=== PATIENT | male | born 1955 | race Caucasian/White ===

== ENCOUNTER 2016-06-26 20:33 | Emergency (ER) | payer OTHER ==
[~2016-06-26] VITALS: Ht 182.9 cm; Wt 113.5 kg
[~2016-06-26 20:33] MED LIST: BACT800T5 PO; BUPR-197 PO; DOXY100T PO; ENAL2.5 PO; HYDR-3133 PO; IBUP800T23 PO; OMPR20CCR PO; QUET100 PO; ROSU40 PO; THIA100T PO; VALP250 PO
[2016-06-26 21:05] VITALS: BP 122/84; PULSE 88; RESP 20; TEMP 98.5; O2SAT 95
--- NOTE | 2016-06-26 21:35 | PD ---
HPI Chief Complaint: Laceration/Skin Injury Time Seen by Provider: 21:32 Travel History International Travel<30 days: No Contact w/Intl Traveler<30days: No Traveled to known affect area: No History of Present Illness HPI 60-year-old male presents the emergency Department with lacerations to the bottom of his left foot. Patient states he dropped some razor blades on the floor. The patient then stepped on them causing lacerations of the left foot. Bleeding is being controlled with dressing the patient applied himself. He denies numbness, tingling, or weakness in the distal left foot. He is unsure of his last tetanus shot. PFSH Past Medical History Asthma: No Bipolar Disorder: Yes Anxiety: Yes Depression: Yes Heart Rhythm Problems: No Cancer: No Cardiovascular Problems: Yes High Cholesterol: Yes Chemotherapy: No Chest Pain: No Congestive Heart Failure: No COPD: No Diabetes: No Diminished Hearing: No Endocrine: No Gastrointestinal Disorders: No GERD: Yes Genitourinary: No Headaches: No Hypertension: Yes Implanted Vascular Access Dvce: No Insomnia: Yes Musculoskeletal: No Neurologic: No Psychiatric: Yes (Treatment for Bipolar Disorder beginning in his 20s. ) Reproductive: No Respiratory: No Immunizations Current: Yes Radiation Therapy: No Seizures: No Sleep Apnea: No Thyroid Disease: No Past Surgical History Genitourinary Surgery: Yes (Removal of polyps during colonoscopy 6+ years ago.) Tonsillectomy: Yes Other Surgery: Yes (POLYPS REMOVED WITH COLONSCOPY) Social History Alcohol Use: No (QUIT 1995) Tobacco Use: Yes (1 PPD) Substance Use: No (PAST) Allergies-Medications (Allergen,Severity, Reaction): Coded Allergies: Penicillin (Verified Adverse Reaction, Intermediate, Diarrhea, 06/26/16) Reported Meds & Prescriptions Reported Meds & Active Scripts Active Enalapril Maleate 2.5 Mg Tab 2.5 Mg PO DAILY 30 Days Vitamin B1 (Thiamine HCl) 100 Mg Tab 100 Mg PO DAILY 30 Days Quetiapine Fumarate 100 Mg Tab 100 Mg PO HS 30 Days Depakene 250 mg (Valproic Acid) 250 Mg Cap 500 Mg PO Q12HR 30 Days Atarax (Hydroxyzine HCl) 25 Mg Tab 25 Mg PO TID PRN Ibuprofen 800 Mg Tab 800 Mg PO Q6 PRN Bactrim DS (Sulfamethoxazole-Trimethoprim DS) 1 Tab Tab 1 Tab PO BID 7 Days Vibramycin 100 mg (Doxycycline Hyclate) 100 Mg Cap 100 Mg PO BID Reported Crestor (Rosuvastatin Calcium) 40 Mg Tab 40 Mg PO HS Prilosec 20 Mg Cap (Omeprazole) 20 Mg Capcr 20 Mg PO DAILY Wellbutrin (Bupropion HCl) 100 Mg Tab 300 Mg PO DAILY Review of Systems Except as stated in HPI: all other systems reviewed are Neg General / Constitutional: No: Fever Eyes: No: Visual changes HENT: No: Headaches Cardiovascular: No: Chest Pain or Discomfort Respiratory: No: Shortness of Breath Gastrointestinal: No: Abdominal Pain Genitourinary: No: Dysuria Musculoskeletal: No: Pain Skin: No Rash Neurologic: No: Weakness Psychiatric: No: Depression Endocrine: No: Polydipsia Hematologic/Lymphatic: No: Easy Bruising Physical Exam Narrative GENERAL: Patient is in no acute distress. SKIN: Warm and dry. Normal color. Normal turgor. Patient has multiple superficial lacerations to the base of the sole of the left foot. HEAD: Atraumatic. Normocephalic. EYES: Pupils equal and round. No scleral icterus. No injection or drainage. ENT: No nasal bleeding or discharge. Mucous membranes pink and moist. NECK: Trachea midline. No JVD. CARDIOVASCULAR: Regular rate and rhythm. RESPIRATORY: No accessory muscle use. Clear to auscultation. Breath sounds equal bilaterally. MUSCULOSKELETAL: Extremities without clubbing, cyanosis, or edema. No obvious deformities. NEUROLOGICAL: Awake and alert. No obvious cranial nerve deficits. Motor grossly within normal limits. Five out of 5 muscle strength in the arms and legs. Normal speech. PSYCHIATRIC: Appropriate mood and affect; insight and judgment normal. Data Data Last Documented VS Vital Signs Date Time Temp Pulse Resp B/P Pulse Ox O2 Delivery O2 Flow Rate FiO2 06/26/16 21:05 98.5 88 20 122/84 95 Orders Tetanus/Diphtheria Tox Adult (Tetanus/Di (06/26/16 22:00) Crutches (06/26/16 21:51) Levofloxacin (Levaquin) (06/26/16 22:00) MDM Medical Decision Making Medical Screen Exam Complete: Yes Emergency Medical Condition: Yes Differential Diagnosis Accidental laceration. Laceration to the left foot. Puncture wound left foot. Narrative Course Patient is medically stable at time of exam. Left foot is soaked in Betadine saline solution for 20 minutes. Wounds are explored and found to be superficial and without foreign body or full -thickness. Foot was dressed with bulky bandage. Radiographic imaging is not felt necessary, or suture closure. Patient is given crutches to limit his weightbearing on the left foot for the next several days. Patient is given a tetanus 0.5 mg IM. Dressing is to remain in place for the next 2-3 days as discussed. Patient is given Levaquin 500 mg by mouth now and to be continued for the next 5 days. Patient should follow-up with any symptoms of cellulitis develop, as needed. Diagnosis Primary Impression: Laceration of left foot excluding toes without complication Qualified Code: S91.312A - Laceration of left foot excluding toes without complication, initial encounter Patient Instructions: General Instructions, Laceration Without Closure (ED), Tetanus (DC) Additional Instructions: Radiographic imaging is not felt necessary, or suture closure. Patient is given crutches to limit his weightbearing on the left foot for the next several days. Patient is given a tetanus 0.5 mg IM. Dressing is to remain in place for the next 2-3 days as discussed. Patient is given Levaquin 500 mg by mouth now and to be continued for the next 5 days. Patient should follow-up with any symptoms of cellulitis develop, as needed. Med/Other Pt SpecificInfo: Prescription(s) given, Wound Care Disposition: 01 DISCHARGE HOME Condition: Stable Jasen Townsend Jun 26, 2016 21:35
[2016-06-26] MEDS ORDERED: LEVA500T PO (21:56)
[2016-06-26] MEDS ORDERED: TETANUS/DIPHTHERIA TOXOID ADULT 0.5 ML VIAL IM ONE (22:00)
[2016-06-26] MEDS ORDERED: LEVOFLOXACIN 500 MG TAB PO ONE (22:00)
== END 2016-06-26 22:11 | disposition home or self-care (01) ==
LOC: PHEFT 20:33
DX: S91.312A Laceration without foreign body, left foot, initial encounter (principal); F41.8 Other specified anxiety disorders; E78.00 Pure hypercholesterolemia, unspecified; I10 Essential (primary) hypertension; F31.9 Bipolar disorder, unspecified; Z23 Encounter for immunization; W45.8XXA Other foreign body or object entering through skin, initial encounter; Y93.9 Activity, unspecified; Y92.9 Unspecified place or not applicable; Y99.9 Unspecified external cause status
CPT/HCPCS: 90471; 90714; E0113

== ENCOUNTER 2016-12-13 15:39 | Emergency (ER) | payer OTHER, MEDICAID ==
[~2016-12-13 15:39] MED LIST changes: -BACT800T5 PO; -BUPR-197 PO; -DOXY100T PO; -ENAL2.5 PO; -HYDR-3133 PO; -IBUP800T23 PO; +LEVA500T PO; -OMPR20CCR PO; -QUET100 PO; -ROSU40 PO; -THIA100T PO; -VALP250 PO
[2016-12-13 15:42] VITALS: BP 165/99; PULSE 88; RESP 15; TEMP 98.4; O2SAT 99
--- NOTE | 2016-12-13 15:54 | PD ---
Physical Exam Time Seen by Provider: 15:52 Narrative 60yo M c/o "bipolar episode." Panic and anxiety. Wants to be evaluated by psych to get back on meds and get stable to function in society. Denies SI or HI. Has no medical complaints at this time. Patient seen in triage. VS reviewed. Awaiting bed placement. Data Data Last Documented VS Vital Signs Date Time Temp Pulse Resp B/P (MAP) Pulse Ox O2 Delivery O2 Flow Rate FiO2 12/13/16 15:42 98.4 88 15 165/99 (121) 99 Orders Orders Complete Blood Count With Diff (12/13/16 15:54) Comprehensive Metabolic Panel (12/13/16 15:54) Psych Screen (12/13/16 15:54) MDM Supervised Visit with MATIAS: Celeste Morse Dec 13, 2016 15:54
[2016-12-13 17:47] LABS: AUTOMATED NEUTROPHIL # 3.3 TH/MM3 (1.8-7.7); BASOPHIL # 0.1 TH/MM3 (0-0.2); BASOPHIL % 0.7 % (0.0-2.0); EOSINOPHIL # 0.1 TH/MM3 (0-0.4); EOSINOPHIL % 1.7 % (0.0-4.0); HEMATOCRIT 44.2 % (39.0-51.0); LYMPH % 42.2 % (9.0-44.0); LYMPHOCYTE # 3.2 TH/MM3 (1.0-4.8); MEAN CELL VOLUME 87.4 FL (80.0-100.0); MEAN CORPUSCULAR HGB CONC 34.3 % (32.0-36.0); MONO % 11.4 % (0.0-8.0); PLATELET COUNT 185 TH/MM3 (150-450); RED BLOOD COUNT 5.05 MIL/MM3 (4.50-5.90); RED CELL DISTRIBUTION WIDTH 14.1 % (11.6-17.2); WHITE BLOOD COUNT 7.6 TH/MM3 (4.0-11.0)
[2016-12-13 17:51] LABS: ALT (GPT) 30 U/L (12-78)
[2016-12-13 17:53] LABS: ALKALINE PHOSPHATASE 83 U/L (45-117); TOTAL BILIRUBIN ADULT 0.4 MG/DL (0.2-1.0)
[2016-12-13 17:55] LABS: ANION GAP 8 MEQ/L (5-15); AST (GOT) 31 U/L (15-37); BICARBONATE 27.5 MEQ/L (21.0-32.0); BLOOD UREA NITROGEN 12 MG/DL (7-18); CHLORIDE 101 MEQ/L (98-107); GLOMERULAR FILTRATION RATE 81 ML/MIN (>89); POTASSIUM 3.4 MEQ/L (3.5-5.1); SODIUM (NA) 136 MEQ/L (136-145)
[2016-12-13 17:56] LABS: ACETAMINOPHEN LESS THAN 2.0 MCG/ML (10.0-30.0); ALCOHOL LESS THAN 3 MG/DL (0-5)
--- NOTE | 2016-12-13 17:58 | PD ---
HPI Chief Complaint: Psychiatric Symptoms Time Seen by Provider: 17:52 Travel History International Travel<30 days: No Contact w/Intl Traveler<30days: No Traveled to known affect area: No History of Present Illness HPI 60-year-old male with PMH of bipolar presents to the ED for voluntary psychiatric evaluation. Patient states that he started working recently after a long hiatus and has been becoming increasingly anxious and agitated. He states that this culminated with an episode today where his heart was pounding and he was crying, very anxious. 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 On presentation he denies suicidal ideation. He endorses increased anxiety. He does not currently take any psychiatric medications. He denies somatic complaints. He denies alcohol, smoking or illicit substance use. PFSH Past Medical History Asthma: No Bipolar Disorder: Yes Anxiety: Yes Depression: Yes Heart Rhythm Problems: No Cancer: No Cardiovascular Problems: Yes High Cholesterol: Yes Chemotherapy: No Chest Pain: No Congestive Heart Failure: No COPD: No Diabetes: No Diminished Hearing: No Endocrine: No Gastrointestinal Disorders: No GERD: Yes Genitourinary: No Headaches: No Hypertension: Yes Implanted Vascular Access Dvce: No Insomnia: Yes Musculoskeletal: No Neurologic: No Psychiatric: Yes (Treatment for Bipolar Disorder beginning in his 20s. ) Reproductive: No Respiratory: No Immunizations Current: Yes Radiation Therapy: No Seizures: No Sleep Apnea: No Thyroid Disease: No Past Surgical History Genitourinary Surgery: Yes (Removal of polyps during colonoscopy 6+ years ago.) Tonsillectomy: Yes Other Surgery: Yes (POLYPS REMOVED WITH COLONSCOPY) Social History Alcohol Use: No (QUIT 1995) Tobacco Use: No Substance Use: No (PAST) Allergies-Medications (Allergen,Severity, Reaction): Coded Allergies: penicillin G (Unverified Adverse Reaction, Intermediate, Diarrhea, 12/04/16 ) Reported Meds & Prescriptions Reported Meds & Active Scripts Active No Active Prescriptions or Reported Medications Review of Systems Except as stated in HPI: all other systems reviewed are Neg Physical Exam Narrative GENERAL: Well-nourished, well-developed white male in no acute distress. PSYCHIATRIC: No delusional thought processes. No hallucinations. Intense eye contact. SKIN: Focused skin assessment warm/dry. HEAD: Normocephalic. EYES: No scleral icterus. No injection or drainage. NECK: Supple, trachea midline. No JVD or lymphadenopathy. CARDIOVASCULAR: Regular rate and rhythm without murmurs, gallops, or rubs. RESPIRATORY: Breath sounds clear and equal bilaterally. No accessory muscle use. GASTROINTESTINAL: Abdomen soft, protuberant, non-tender, nondistended. Active bowel sounds. MUSCULOSKELETAL: No cyanosis, or edema. BACK: Nontender without obvious deformity. No CVA tenderness. Data Data Last Documented VS Vital Signs Date Time Temp Pulse Resp B/P (MAP) Pulse Ox O2 Delivery O2 Flow Rate FiO2 12/13/16 18:21 89 18 153/88 (109) 97 Room Air 12/13/16 15:42 98.4 Orders Orders Complete Blood Count With Diff (12/13/16 15:54) Comprehensive Metabolic Panel (12/13/16 15:54) Psych Screen (12/13/16 15:54) Drug Screen, Random Urine (12/13/16 15:54) Alcohol (Ethanol) (12/13/16 15:54) Salicylates (Aspirin) (12/13/16 15:54) Tylenol (Acetaminophen) (12/13/16 15:54) Labs Laboratory Tests Test 12/13/16 17:00 12/13/16 17:16 White Blood Count 7.6 TH/MM3 Red Blood Count 5.05 MIL/MM3 Hemoglobin 15.2 GM/DL Hematocrit 44.2 % Mean Corpuscular Volume 87.4 FL Mean Corpuscular Hemoglobin 30.0 PG Mean Corpuscular Hemoglobin Concent 34.3 % Red Cell Distribution Width 14.1 % Platelet Count 185 TH/MM3 Mean Platelet Volume 9.0 FL Neutrophils (%) (Auto) 44.0 % Lymphocytes (%) (Auto) 42.2 % Monocytes (%) (Auto) 11.4 % Eosinophils (%) (Auto) 1.7 % Basophils (%) (Auto) 0.7 % Neutrophils # (Auto) 3.3 TH/MM3 Lymphocytes # (Auto) 3.2 TH/MM3 Monocytes # (Auto) 0.9 TH/MM3 Eosinophils # (Auto) 0.1 TH/MM3 Basophils # (Auto) 0.1 TH/MM3 CBC Comment AUTO DIFF Differential Comment AUTO DIFF CONFIRMED Blood Urea Nitrogen 12 MG/DL Creatinine 0.95 MG/DL Random Glucose 90 MG/DL Total Protein 7.6 GM/DL Albumin 3.6 GM/DL Calcium Level 8.5 MG/DL Alkaline Phosphatase 83 U/L Aspartate Amino Transf (AST/SGOT) 31 U/L Alanine Aminotransferase (ALT/SGPT) 30 U/L Total Bilirubin 0.4 MG/DL Sodium Level 136 MEQ/L Potassium Level 3.4 MEQ/L Chloride Level 101 MEQ/L Carbon Dioxide Level 27.5 MEQ/L Anion Gap 8 MEQ/L Estimat Glomerular Filtration Rate 81 ML/MIN Salicylates Level LESS THAN 1.7 MG/DL Acetaminophen Level LESS THAN 2.0 MCG/ML Ethyl Alcohol Level LESS THAN 3 MG/DL Urine Opiates Screen NEG Urine Barbiturates Screen NEG Urine Amphetamines Screen NEG Urine Benzodiazepines Screen NEG Urine Cocaine Screen NEG Urine Cannabinoids Screen NEG MDM Medical Decision Making Medical Screen Exam Complete: Yes Emergency Medical Condition: Yes Differential Diagnosis Adjustment disorder versus anxiety versus bipolar versus depression versus dementia versus electrolyte disorder versus malingering versus mood disorder versus ODD versus psychosis versus PTSD versus schizophrenia versus schizoaffective disorder versus substance-induced mood disorder versus other Narrative Course 60-year-old male with PMH of bipolar presents to the ED for voluntary psychiatric evaluation. Patient states that he started working recently after a long hiatus and has been becoming increasingly anxious and agitated. He states that this culminated with an episode today where his heart was pounding and he was crying, very anxious. 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 On presentation he denies suicidal ideation. He endorses increased anxiety. He does not currently take any psychiatric medications. He denies somatic complaints. He denies alcohol, smoking or illicit substance use. Vitals reviewed. Physical exam is unremarkable. No concerning abnormalities of the CBC, CMP, UA. Tox screen negative. The patient is medically cleared for psychiatric evaluation. Please see psychiatric note for disposition. Diagnosis Primary Impression: Medical clearance for psychiatric admission Scripts No Active Prescriptions or Reported Meds Jamia Bello Dec 13, 2016 17:58
[2016-12-13 18:21] VITALS: BP 153/88; PULSE 89; RESP 18; O2SAT 97
[2016-12-13 18:23] LABS: HEMO FLAGS AUTO DIFF
[2016-12-13 18:26] LABS: SCAN/DIFF AUTO DIFF CONFIRMED
[2016-12-13 19:20] VITALS: BP 150/85; PULSE 87; RESP 17; O2SAT 97
[2016-12-14 00:08] VITALS: BP 158/90; PULSE 85; RESP 16; TEMP 97.8; O2SAT 97
[2016-12-14 03:55] VITALS: BP 169/111; PULSE 97; RESP 16; O2SAT 97
[2016-12-14 06:37] VITALS: BP 154/88; PULSE 79; RESP 18; O2SAT 96
[2016-12-14 12:15] VITALS: BP 149/88; PULSE 81; RESP 18; TEMP 98.6; O2SAT 92
--- NOTE | 2016-12-14 15:06 | PD ---
History of Present Illness Chief Complaint: Psychiatric Symptoms Time Seen by Provider: 14:45 Travel History International Travel<30 Days: No Contact w/Intl Traveler<30days: No Known affected area: No Legal Status Legal Status: Voluntary History of Present Illness: History of Present Illness HPI 60-year-old male with PMH of bipolar presents to the ED for voluntary psychiatric evaluation. ED documentation reviewed and included in this report ; " Patient states that he started working recently after a long hiatus and has been becoming increasingly anxious and agitated. He states that this culminated with an episode today where his heart was pounding and he was crying , very anxious. 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 On presentation he denies suicidal ideation. He endorses increased anxiety. He does not currently take any psychiatric medications. " EMR reviewed. Has been seen by [facility] psychiatry dept. Seen. He is alert, calm, engaging. Mood is slightly elated. He feels he is " beginning to feel hyper' and wants to start his medications again. He is requesting Airport. He is also reporting that he is beginning to drink " some wine". He has not followed up with outpatient care . He is sleeping fair. There is no psychisi and no natan. No suicidal or homicidal ideation, intent or plan. PFSH Past Medical History Asthma: No Bipolar Disorder: Yes Anxiety: Yes Depression: Yes Heart Rhythm Problems: No Cancer: No Cardiovascular Problems: Yes High Cholesterol: Yes Chemotherapy: No Chest Pain: No Congestive Heart Failure: No COPD: No Diabetes: No Diminished Hearing: No Endocrine: No Gastrointestinal Disorders: No GERD: Yes Genitourinary: No Headaches: No Hypertension: Yes Implanted Vascular Access Dvce: No Insomnia: Yes Musculoskeletal: No Neurologic: No Psychiatric: Yes (Treatment for Bipolar Disorder beginning in his 20s. ) Reproductive: No Respiratory: No Immunizations Current: Yes Radiation Therapy: No Seizures: No Sleep Apnea: No Thyroid Disease: No Past Surgical History Genitourinary Surgery: Yes (Removal of polyps during colonoscopy 6+ years ago.) Tonsillectomy: Yes Other Surgery: Yes (POLYPS REMOVED WITH COLONSCOPY) Psychiatric History Psychiatric History Hx Psychiatric Treatment: Pt states he has an extensive history of inpatient psychiatric hospitalizations beginning in his 20s in [place]. He also reports that he has hospitalizations in [place]. He denies any current outpatient psychiatric services. 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 Hx Alcohol Use: No (QUIT 1995) Hx Tobacco Use: No Hx Substance Use: No (PAST) Substance Use Type: Alcohol, Marijuana, Nicotine/Cigarettes, Cocaine Other Substances Used: ATTENDS AA MEETINGS, PAST ILLICIT DRUG USE Hx of Substance Use Treatment: No Family Psychiatric History Negative Allergies-Medications (Allergen,Severity, Reaction): Coded Allergies: penicillin G (Unverified Adverse Reaction, Intermediate, Diarrhea, 12/04/16 ) Reported Meds & Prescriptions Reported Meds & Active Scripts Active No Active Prescriptions or Reported Medications Review of Systems Except as stated in HPI: all other systems reviewed are Neg Exam Alert: Yes [place]: Person (ox4) Mood: Anxious Affect: Appropriate Speech: Clear, Logical Eye Contact: Normal Memory Intact: Comment (no abnormality) Hallucinations: Other (negative) Delusions: No Suicidal: Ideation (deneis any) Homicidal: Ideation (deneis any) Insight/Judgement Fair [facility] Medical Decision Making Medical Record Reviewed: Yes Assessment/Plan HPI 60-year-old male with PMH of bipolar presents to the ED for voluntary psychiatric evaluation. Patient states that he started working recently after a long hiatus and has been becoming increasingly anxious and agitated. Patient monitored over an extended time. He is not manic or hypomanic. Anxious at times. Not psychotic and not suicidal. He wants to be able to get back on medication as well as in regular psychiatric follow up. H e knows he cannot drink alcohol. He wants prescription so that he can return to work on Saturday. Will RX Seroquel 100 mg po at [facility] which he has had in the past. Will not initiate Airport without having a regular outpatient provider. Follow up with outpatient provider. Cleared from psychiatry for discharge Orders Orders Complete Blood Count With Diff (12/13/16 15:54) Comprehensive Metabolic Panel (12/13/16 15:54) Psych Screen (12/13/16 15:54) Drug Screen, Random Urine (12/13/16 15:54) Alcohol (Ethanol) (8/24/17 15:54) Salicylates (Aspirin) (12/13/16 15:54) Tylenol (Acetaminophen) (12/13/16 15:54) Diet Regular Basic (12/14/16 Breakfast) Diet Regular Basic (12/14/16 Lunch) Results Vital Signs Date Time Temp Pulse Resp B/P (MAP) Pulse Ox O2 Delivery O2 Flow Rate FiO2 12/14/16 12:15 98.6 81 18 149/88 (108) 92 12/14/16 06:37 79 18 154/88 (110) 96 12/14/16 03:55 97 16 169/111 (130) 97 Room Air 12/14/16 00:08 97.8 85 16 158/90 (112) 97 12/13/16 19:20 87 17 150/85 (106) 97 Room Air 12/13/16 18:21 89 18 153/88 (109) 97 Room Air 12/13/16 18:21 18 12/13/16 15:42 98.4 88 15 165/99 (121) 99 Laboratory Tests Test 12/13/16 17:00 12/13/16 17:16 White Blood Count 7.6 Red Blood Count 5.05 Hemoglobin 15.2 Hematocrit 44.2 Mean Corpuscular Volume 87.4 Mean Corpuscular Hemoglobin 30.0 Mean Corpuscular Hemoglobin Concent 34.3 Red Cell Distribution Width 14.1 Platelet Count 185 Mean Platelet Volume 9.0 Neutrophils (%) (Auto) 44.0 Lymphocytes (%) (Auto) 42.2 Monocytes (%) (Auto) 11.4 Eosinophils (%) (Auto) 1.7 Basophils (%) (Auto) 0.7 Neutrophils # (Auto) 3.3 Lymphocytes # (Auto) 3.2 Monocytes # (Auto) 0.9 Eosinophils # (Auto) 0.1 Basophils # (Auto) 0.1 CBC Comment AUTO DIFF Differential Comment AUTO DIFF CONFIRMED Blood Urea Nitrogen 12 Creatinine 0.95 Random Glucose 90 Total Protein 7.6 Albumin 3.6 Calcium Level 8.5 Alkaline Phosphatase 83 Aspartate Amino Transf (AST/SGOT) 31 Alanine Aminotransferase (ALT/SGPT) 30 Total Bilirubin 0.4 Sodium Level 136 Potassium Level 3.4 Chloride Level 101 Carbon Dioxide Level 27.5 Anion Gap 8 Estimat Glomerular Filtration Rate 81 Salicylates Level LESS THAN 1.7 Acetaminophen Level LESS THAN 2.0 Ethyl Alcohol Level LESS THAN 3 Urine Opiates Screen NEG Urine Barbiturates Screen NEG Urine Amphetamines Screen NEG Urine Benzodiazepines Screen NEG Urine Cocaine Screen NEG Urine Cannabinoids Screen NEG Diagnosis Primary Impression: Medical clearance for psychiatric admission Additional Impression: Bipolar disorder Psychiatrically Cleared: Yes Med/ Other Pt Specific Info: Prescription(s) given Prescriptions Quetiapine (Seroquel) 100 Mg Tab 100 MG PO HS for Anxiety for 30 Days, #30 TAB 0 Refills Prov: Adalgisa Romero 12/14/16 Disposition: 01 DISCHARGE HOME Condition: Stable Problem Qualifiers Adalgisa Romero Dec 14, 2016 15:06
[2016-12-14] MEDS ORDERED: SERO100T PO (15:09)
--- NOTE | 2016-12-14 15:23 | PD ---
Physical Exam Date Seen by Provider: Dec 14, 2016 Time Seen by Provider: 15:21 Narrative 60-year-old male here for bipolar disorder and voluntary admission. Patient was seen by psychiatric nurse practitioner Adalgisa Romero and deemed stable for discharge from psychiatric standpoint. Patient tells me that he has no intention of suicide or homicide. Apparently he was here with history of bipolar disorder and needed some medication adjustment. Data Data Last Documented VS Vital Signs Date Time Temp Pulse Resp B/P (MAP) Pulse Ox O2 Delivery O2 Flow Rate FiO2 12/14/16 12:15 98.6 81 18 149/88 (108) 92 12/14/16 03:55 Room Air Orders Orders Complete Blood Count With Diff (12/13/16 15:54) Comprehensive Metabolic Panel (12/13/16 15:54) Psych Screen (12/13/16 15:54) Drug Screen, Random Urine (12/13/16 15:54) Alcohol (Ethanol) (12/13/16 15:54) Salicylates (Aspirin) (12/13/16 15:54) Tylenol (Acetaminophen) (12/13/16 15:54) Diet Regular Basic (12/14/16 Breakfast) Diet Regular Basic (12/14/16 Lunch) Diet Regular Basic (12/14/16 Dinner) Labs Laboratory Tests Test 12/13/16 17:00 12/13/16 17:16 White Blood Count 7.6 TH/MM3 Red Blood Count 5.05 MIL/MM3 Hemoglobin 15.2 GM/DL Hematocrit 44.2 % Mean Corpuscular Volume 87.4 FL Mean Corpuscular Hemoglobin 30.0 PG Mean Corpuscular Hemoglobin Concent 34.3 % Red Cell Distribution Width 14.1 % Platelet Count 185 TH/MM3 Mean Platelet Volume 9.0 FL Neutrophils (%) (Auto) 44.0 % Lymphocytes (%) (Auto) 42.2 % Monocytes (%) (Auto) 11.4 % Eosinophils (%) (Auto) 1.7 % Basophils (%) (Auto) 0.7 % Neutrophils # (Auto) 3.3 TH/MM3 Lymphocytes # (Auto) 3.2 TH/MM3 Monocytes # (Auto) 0.9 TH/MM3 Eosinophils # (Auto) 0.1 TH/MM3 Basophils # (Auto) 0.1 TH/MM3 CBC Comment AUTO DIFF Differential Comment AUTO DIFF CONFIRMED Blood Urea Nitrogen 12 MG/DL Creatinine 0.95 MG/DL Random Glucose 90 MG/DL Total Protein 7.6 GM/DL Albumin 3.6 GM/DL Calcium Level 8.5 MG/DL Alkaline Phosphatase 83 U/L Aspartate Amino Transf (AST/SGOT) 31 U/L Alanine Aminotransferase (ALT/SGPT) 30 U/L Total Bilirubin 0.4 MG/DL Sodium Level 136 MEQ/L Potassium Level 3.4 MEQ/L Chloride Level 101 MEQ/L Carbon Dioxide Level 27.5 MEQ/L Anion Gap 8 MEQ/L Estimat Glomerular Filtration Rate 81 ML/MIN Salicylates Level LESS THAN 1.7 MG/DL Acetaminophen Level LESS THAN 2.0 MCG/ML Ethyl Alcohol Level LESS THAN 3 MG/DL Urine Opiates Screen NEG Urine Barbiturates Screen NEG Urine Amphetamines Screen NEG Urine Benzodiazepines Screen NEG Urine Cocaine Screen NEG Urine Cannabinoids Screen NEG MDM Medical Record Reviewed: Yes Supervised Visit with MATIAS: No Differential Diagnosis Bipolar disorder Narrative Course 60-year-old male here for bipolar disorder. Apparently he wanted some change in medication. I discussed the case with Adalgisa Romero psychiatric nurse practitioner. Patient was psychiatrically cleared. Discharge orders for the patient. I recommend follow-up with his outpatient providers. Diagnosis Primary Impression: Medical clearance for psychiatric admission Additional Impression: Bipolar disorder Referrals: Psychiatrist Scripts Quetiapine (Seroquel) 100 Mg Tab 100 MG PO HS for Anxiety for 30 Days, #30 TAB 0 Refills Prov: Adalgisa Romero 12/14/16 Disposition: 01 DISCHARGE HOME Condition: Stable Thelma Padilla Dec 14, 2016 15:23
== END 2016-12-14 18:23 | disposition home or self-care (01) ==
LOC: NEPD 15:39 → NEPJ 12-14 18:23
DX: F31.9 Bipolar disorder, unspecified (principal); F41.9 Anxiety disorder, unspecified; E78.00 Pure hypercholesterolemia, unspecified; K21.9 Gastro-esophageal reflux disease without esophagitis; I10 Essential (primary) hypertension; Z88.0 Allergy status to penicillin
CPT/HCPCS: 80053; 80307; 85025; 99284